=== PATIENT | male | born 1995 | race African-American/Black ===

== ENCOUNTER 2016-09-04 18:51 | Emergency (ER) | payer SELFPAY ==
[~2016-09-04] VITALS: Ht 170.2 cm; Wt 72.0 kg
[2016-09-04 18:52] VITALS: BP 130/82; PULSE 69; RESP 16; TEMP 98.3; O2SAT 99
[2016-09-04 21:42] VITALS: BP 140/63; PULSE 64; RESP 20; TEMP 98.2; O2SAT 99
--- NOTE | 2016-09-04 21:44 | PD ---
HPI Chief Complaint: Chest Pain Time Seen by Provider: 21:44 Travel History International Travel<30 days: No Contact w/Intl Traveler<30days: No Traveled to known affect area: No History of Present Illness HPI 21-year-old male presents to the emergency department for evaluation of intermittent left-sided chest pain for 1 month. He states that today, he had something to eat and he wanted with some sharp left lower chest pain. Patient states the pain will worsen with movement of the left arm as well as eating. He states that drinking water resolves the pain. Patient states it has been intermittent for the past month and has not been seen for it. He states the pain is minimal at this time, but "I know it will come back". Patient denies any shortness of breath. He has no chronic medical problems and takes no prescribed medications. He states that he did use tobacco previously, but is not currently tobacco user. He does smoke marijuana, but denies any other drug use. No IVDU. He denies any fevers or chills. Patient is unsure of family history due to being adopted. He denies any history of blood clots. No hemoptysis. No recent surgery or travel. FORMERLY [facility], [facility] Past Medical History Medical History: Denies Significant Hx Diminished Hearing: No Past Surgical History Surgical History: No Previous Surgery Social History Alcohol Use: Yes (occasional) Tobacco Use: No (quit 3 yrs ago) Substance Use: Yes (marijuana) Allergies-Medications (Allergen,Severity, Reaction): Coded Allergies: No Known Allergies (Unverified , 09/04/16) Reported Meds & Prescriptions Reported Meds & Active Scripts Active No Active Prescriptions or Reported Medications Review of Systems Except as stated in HPI: all other systems reviewed are Neg Physical Exam Narrative GENERAL: Well-nourished, well-developed male patient, afebrile. SKIN: Focused skin assessment warm/dry. HEAD: Normocephalic. EYES: No scleral icterus. No injection or drainage. NECK: Supple, trachea midline. No JVD or lymphadenopathy. CARDIOVASCULAR: Regular rate and rhythm without murmurs, gallops, or rubs. Bilateral radial and pedal pulses are 2+. RESPIRATORY: Breath sounds equal bilaterally. No accessory muscle use. Lungs sounds are clear to auscultation. GASTROINTESTINAL: Abdomen soft, non-tender, nondistended. MUSCULOSKELETAL: No cyanosis, or edema. Left chest pain is reproducible with palpation. BACK: Nontender without obvious deformity. No CVA tenderness. Data Data Last Documented VS Vital Signs Date Time Temp Pulse Resp B/P Pulse Ox O2 Delivery O2 Flow Rate FiO2 09/04/16 21:42 98.2 64 20 140/63 99 09/04/16 18:52 Room Air Orders Electrocardiogram (09/04/16 ) Chest, Single Ap (09/04/16 ) MDM Medical Decision Making Medical Screen Exam Complete: Yes Emergency Medical Condition: Yes Medical Record Reviewed: Yes Interpretation(s) chest x-ray = CONCLUSION: No acute disease. Differential Diagnosis Chest wall pain versus pleurisy versus WPW vs. pneumothorax versus pneumonia versus ACS versus cardiac arrhythmia Narrative Course 21-year-old male presents to the emergency department for evaluation of intermittent left chest pain for 1 month. Patient is PERC negative. EKG shows sinus rhythm, heart rate 66 with early repolarization. No acute ST changes. Chest x-ray is ordered and pending. Chest x-ray shows no acute disease. Physical exam and symptoms are reassuring. I discussed the case with my attending physician, Dr. Conteh, who agrees on plan and disposition. Instructed the patient to follow-up with his primary care physician for further workup. He is instructed to return immediately for any acute worsening of symptoms. Patient verbalizes agreement and understanding. The patient was discharged in stable condition with instructions, including return instructions and follow up instructions. Diagnosis Primary Impression: Atypical chest pain Referrals: Primary Care Physician call for appointment Patient Instructions: Chest Wall Pain (ED), General Instructions Additional Instructions: Follow-up with your primary care physician. Return to the emergency department for any acute worsening of symptoms. Med/Other Pt SpecificInfo: No Change to Meds Scripts No Active Prescriptions or Reported Meds Disposition: 01 DISCHARGE HOME Condition: Stable Margaret MooreP Sep 04, 2016 21:44
--- NOTE | 2016-09-04 22:37 | RADRPT ---
EXAM DATE/TIME: 09/04/2016 21:53 [facility] COMPARISON: No previous studies available for comparison. INDICATIONS : Chest pain for 1 month MEDICAL HISTORY : None. SURGICAL HISTORY : None. ENCOUNTER: Initial ACUITY: 1 month PAIN SCORE: 8/10 LOCATION: Bilateral chest FINDINGS: A single view of the chest demonstrates the lungs to be symmetrically aerated without evidence of mas s, infiltrate or effusion. The cardiomediastinal contours are unremarkable. Osseous structures are intact. CONCLUSION: No acute disease. Alan Hendricks MD on September 04, 2016 at 22:36 Board Certified Radiologist. This report was verified electronically.
--- NOTE | 2016-09-06 21:23 | EKG ---
Date Performed: 09/04/2016 Time Performed: 21:46:35 PTAGE: 21 years EKG: Sinus rhythm LEFT VENTRICULAR HYPERTROPHY AND ST-T CHANGE ABNORMAL ECG NO PREVIOUS TRACING DOCTOR: Lynda Rocha Interpretating Date/Time 09/06/2016 21:21:18
== END 2016-09-05 00:13 | disposition home or self-care (01) ==
LOC: NEPC 18:51
DX: R07.89 Other chest pain (principal)
CPT/HCPCS: 71010; 93005